=== PATIENT | female | born 1990 | race Caucasian/White ===

== ENCOUNTER 2020-09-08 07:52 | Emergency (ER) | payer OTHER ==
[~2020-09-08 07:52] MED LIST: LO LOESTRIN FE1 EACH PO
[2020-09-08] MEDS ORDERED: PERCOCET 7.5-31 EACH PO (13:23)
[2020-09-09] MEDS ORDERED: LEXAPRO 10MG TA10 MG PO (11:20)
[2020-09-14] MEDS ORDERED: PERCOCET 5-3251 EACH PO (08:12)
[2020-09-14] MEDS ORDERED: ASPIRIN325 MG PO (11:10)
== END 2020-09-08 14:03 | disposition home or self-care (01) ==
LOC: FER 07:52
DX: S82.841A Displaced bimalleolar fracture of right lower leg, initial encounter for closed fracture (principal); F17.290 Nicotine dependence, other tobacco product, uncomplicated; W00.0XXA Fall on same level due to ice and snow, initial encounter; Y92.009 Unspecified place in unspecified non-institutional (private) residence as the place of occurrence of the external cause
CPT/HCPCS: 27810; 73600; 73610; 96374; 96375; 99152; J1170; J2405; J2704

== ENCOUNTER → 2020-09-14 | Day surgery (SDC) | payer OTHER ==
[~2020-09-14] MED LIST changes: +ASPIRIN325 MG PO; +LEXAPRO 10MG TA10 MG PO; +PERCOCET 5-3251 EACH PO; +PERCOCET 7.5-31 EACH PO
[2020-09-14 07:31] LABS: HCG (URINE) SCREEN NEGATIVE (NEGATIVE)
[2020-09-14 08:04] LABS: HCT 41.3 % (37.0-47.0); HGB 13.8 g/dl (12.5-16.0); MCH 29.7 pg (25.0-31.0); MCHC 33.4 g/dL (32.0-36.0); MPV 11.2 fL (6.0-9.5); RBC 4.64 M/uL (4.20-5.40); RDW 12.8 % (11.5-14.0); WBC 11.5 K/uL (4.0-10.5)
[2020-09-14 08:28] LABS: ALBUMIN 3.4 g/dL (3.4-5.0); BILIRUBIN - TOTAL 0.8 mg/dL (0.2-1.0); CREATININE 0.59 mg/dL (0.51-0.95); GLOBULIN (CALCULATION) 4.1 g/dL; POTASSIUM 3.8 mmol/L (3.5-5.1); TOTAL PROTEIN 7.5 g/dL (6.4-8.2)
== END | disposition home or self-care (01) ==
LOC: FAS 06:45
PROVIDERS: Orthopaedic Surgery
DX: S82.841A Displaced bimalleolar fracture of right lower leg, initial encounter for closed fracture (principal); F41.8 Other specified anxiety disorders; W00.0XXA Fall on same level due to ice and snow, initial encounter; Y93.9 Activity, unspecified; Z90.49 Acquired absence of other specified parts of digestive tract; Z20.822 Contact with and (suspected) exposure to COVID-19
CPT/HCPCS: 36415; 73600; 76000; 80053; 84703; C1713; C1769; J0171; J0690; J1100; J1170; J1885; J2250; J2405; J2704; J2795; J7120